=== PATIENT | female | born 1980 | race Caucasian/White ===

== ENCOUNTER 2024-10-17 09:15 | Outpatient (AMB) | payer BC, SELFPAY ==
--- NOTE | 2024-10-17 09:27 | GYNCLNT_ITS ---
Vital Signs 10/17/24 09:34 Height 1.52 m Height Method Stated Weight 83.461 kg Weight Measurement Method Standing Scale BMI 35.9 BP 134/89 H Blood Pressure Source Automatic Cuff Blood Pressure Location Right Upper Arm Position Sitting Respiration 16 Pulse 80 Pulse Source Monitor Temp 97.2 F Temp Source Oral Pulse Oximetry (%) 99 Oxygen Delivery Method Room Air Allergies/Home Meds Allergies & Medications Allergies Penicillins Allergy (Mild, Verified 10/17/24 09:35) Rash Medication Reconciliation No Known Home Medications 10/17/24 [History Confirmed 10/17/24] Intake Visit Data Collection New Patient or Established: New Patient (never been to [facility]) Reason for Visit:: annual wellness Seen by Clinical Staff ONLY (RN/MA): No Vial Gauger Required: No Do You Feel Safe at Home: Yes Authorities Contacted: N/A PCP or OBGYN visit in last 3 months: No Hx Now: No Are you currently on any form of Control: No Pain Present Currently: No Pain Scale Used: Martinez-Hewitt/Numerical Pain scale:: 0 Smoking Status Smoking Status: Never smoker 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 1. Little interest or pleasure in doing things: not at all 2. Feeling down, depressed, or hopeless: not at all Total score: 0 PHQ-9 3. Trouble falling or staying asleep, or sleeping too much: Not at all 4. Feeling tired or having little energy: Not at all 5. Poor appetite or overeating: Not at all 6. Feeling bad about yourself - or that you are a failure or have let yourself o r your family down: Not at all 7. Trouble concentrating on things, such as reading the newspaper or watching television: Not at all 8. Moving or speaking so slowly that other people could have noticed? - Or the opposite - being so fidgety or restless that you have been moving around a lot more than usual: not at all 9. Thoughts that you would be better off or of hurting yourself in some way: Not at all Total score: 0 Source: Developed by Drs. Antonino Lopez, Lulu Jacinto, Juan Manuel Shirley and colleagues, with an educational smitha from [employer]. 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 20-year-old son,16-y/o girl Tobacco History Smoking Status: Never smoker Second Hand Smoke Exposure: No Alcohol History Alcohol Intake: Former Alcohol Intake Frequency: holidays/special occasions only Domestic Abuse History Do You Feel Safe at Home: Yes Past Medical History Past Medical History Have you ever been diagnosed with any of the following: Respiratory Problems Tobacco Use: No Stomache/Intestinal Problems Obesity: No Reproductive Problems Breast Cancer: No Endometriosis: No Fibroids: No Genital Herpes: No Gonorrhea: No Pelvic Inflammatory Disease: No Polycystic Ovarian Syndrome: No Previous Pregnancies: Yes ( x 2, 18 years and 14 years ago) Endocrine Problems Diabetes Mellitus Type 2: No Psychologic Problems Depression: No Other Problems Hospitalization: Yes (For childbirth x 2) Surgical History Cholecystectomy: Yes Additional Surgical History: x 2, tubal ligation with uterine ablation 2011, laparoscopic cholecystectomy History of Present Illness HPI Narrative The patient is a 43-year-old -0-0-2 presents for an annual exam. She used to see me in [place]. She has no gynecological complaints except for weight gain. She states she has gained approximately 15 pounds this year. She states her was hurt in some type of accident at the detention and he has been home a lot and this has been stressful for her. She reports occasional night sweats but no serious hot flashes. Patient does have her office records and will release them to me. She has a family history of cardiac disease and does see Dr. Romero for cardiology and states her cholesterol is low. She has a mammogram already ordered for [facility] in [place]. This will be done in November or December of this year. 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 She has no gynecological complaints. Her son is 20 and going to [employer] and going to pursue a degree in business her daughter Bisi is 16 and involved in a variety of activities. Patient has had a tubal ligation and ablation. She does not have cycles after her ablation. Review of Systems Review of Systems Narrative Review of Systems: Patient has gained 15 pounds this year. She works out every day. She admits that she might need to work on her diet a bit. We did discuss weight watchers. Occasional night sweats no hot flashes no abnormal uterine bleeding no breast complaints no urinary complaints she goes to [place] to get her mammograms. Exam General General Appearance: alert, in no apparent distress, comfortable, cooperative, healthy appearing and well groomed Neck Neck exam: Present normal inspection, full ROM and trachea midline Chest Chest inspection: Present normal inspection and symmetric chest wall rise Exp Chest Breast: bilateral: other (Normal bilateral breast exam) Resp Respiratory exam: Present normal lung sounds bilaterally Card Cardiovascular exam: Present regular rate, normal rhythm and normal heart sounds Abdominal Abdominal exam: Present soft and normal bowel sounds External exam: Present normal external exam Speculum exam: Present normal speculum exam Bimanual exam: Present normal bimanual exam Extremities Extremities exam: Present normal inspection and full ROM Psych Psychiatric exam: Present normal affect and normal mood Skin Skin exam: Present warm, dry, intact and normal color Assessment & Plan Diagnosis / Problem List (1) Weight gain: Status: Acute Assessment and Plan: Thyroid levels checked FSH estradiol checked (2) Hot flashes: Status: Acute Assessment and Plan: Thyroid estrogen FSH checked (3) Women's annual routine gynecological examination: Status: Acute Assessment and Plan: Pap with high-risk HPV performed patient has mammogram scheduled for [facility]. She will follow-up for colon screening with her primary care. Weight loss encouraged healthy diet encouraged weight watchers encouraged. Continued exercise encouraged. Additional Plan Follow Up: 1 Year Office Procedures OB Clinic LOC & Office Proc's Nursing/Assessment Patient Status: Initial/New Patient OB Clinic Nursing Assessment: Medication Reconciliation, Update PMH in EMR and Vital Signs OB Clinic Coordination of Care: Complex Care and Chronic Disease 1-5, Consent,records obtained, informed consent, Education Simp Pt/Fam, Lab and Imaging orders, Results/Orders obtained and Staff clarify orders Miscellaneous Interventions: Breast Exam and Pelvic/Pap Smear Set up New Patient Charge New Patient Point Assignment: 1154 New Patient Point Charge: RESEARCH AND DEVELOPMENT MANAGER Level 4 ([id number]) In Clinic Procedures Pap Smear: Yes INFORMATION STRATEGIST: Papsmear Pap Smear Procedure Chaparone in room during procedure?: No Pre-op diagnosis general: Annual wellness exam Post-op diagnosis procedure note: Same Procedure Notes:: Pap with cotesting to HPV performed Papsmear completed: yes
[2024-10-17 09:34] VITALS: BP 134/89; PULSE 80; RESP 16; TEMP 36.2; O2SAT 99; BMI 35.9
== END 2024-10-17 10:26 | disposition home or self-care (01) ==
LOC: HODSOBC 09:15
PROVIDERS: Supervising Provider Obstetrics & Gynecology; Visit Provider Obstetrics & Gynecology
DX: Z01.419 Encounter for gynecological examination (general) (routine) without abnormal findings (principal); R63.5 Abnormal weight gain; Z68.35 Body mass index [BMI] 35.0-35.9, adult; N95.1 Menopausal and female climacteric states; R23.2 Flushing
CPT/HCPCS: 99204; Q0091; G0463

== ENCOUNTER → 2024-10-17 | Outpatient (CLI) | payer BC, SELFPAY ==
[2024-10-17 11:36] LABS: Thyroid Stimulating Hormone 1.86 uIU/mL (0.55-4.78)
[2024-10-17 11:46] LABS: Follicle Stimulating Hormone 16.82 mIU/mL (See Note); Glucose Estimated Average 105 mg/dL (80-131); Hemoglobin A1C 5.3 % Hgb (4.8-6.0)
== END | disposition home or self-care (01) ==
PROVIDERS: PCP Obstetrics & Gynecology; Referring Provider Obstetrics & Gynecology; Visit Provider Obstetrics & Gynecology
DX: R23.2 Flushing (principal); R63.5 Abnormal weight gain
CPT/HCPCS: 36415; 82670; 82681; 83001; 83036; 84443